=== PATIENT | male | born 1975 | race Two or more races ===

== ENCOUNTER 2020-06-23 14:50 | Outpatient (CLI) | payer OTHER | END 2020-06-23 14:59 | disposition home or self-care (01) | LOC: LAB 14:50 | PROVIDERS: ATTEND Urology | DX: R31.0 Gross hematuria (principal) ==

== ENCOUNTER 2020-06-30 08:43 | Outpatient (CLI) | payer OTHER | END 2020-06-30 09:30 | disposition home or self-care (01) | LOC: TOM 08:43 | PROVIDERS: ATTEND Urology | DX: N40.0 Benign prostatic hyperplasia without lower urinary tract symptoms (principal); R16.1 Splenomegaly, not elsewhere classified; R31.0 Gross hematuria; K57.90 Diverticulosis of intestine, part unspecified, without perforation or abscess without bleeding ==

== ENCOUNTER 2023-06-19 13:53 | Outpatient (CLI) | payer OTHER | END 2023-06-19 14:01 | disposition home or self-care (01) | LOC: SONOGRAMA 13:53 | PROVIDERS: ATTEND Urology | DX: R31.1 Benign essential microscopic hematuria (principal); R33.9 Retention of urine, unspecified ==